=== PATIENT | female | born 1940 | race Caucasian/White ===

== ENCOUNTER 2016-12-14 21:35 | Inpatient (IN) | payer MEDICARE ==
--- NOTE | 2016-12-14 22:25 | Emergency Department Record ---
History of Present Illness - General Chief complaint: Hypogylcemia Stated complaint: LOW BLOOD SUGAR Time Seen by Provider: 12/14/16 22:20 Source: Patient, Family Mode of Arrival: EMS - History of Present Illness Initial comments: Family member witnessed the patient taking her insulin twice accidentally. Called EMS with BS low. D50 given en route with good results. Patient alert currently. No complaints. Onset/Timin -: Hour(s) Consistency: Constant, Getting worse - Related Data Home Medications Medication Instructions Recorded Confirmed Last Taken Atorvastatin Calcium [Atorvastatin 80 mg PO DAILY 12/14/16 12/14/16 Unknown Calcium] Hum Insulin NPH/Reg Insulin Hm 1 unit SC BID 12/14/16 12/14/16 Unknown [Novolin 70/30] Losartan/Hydrochlorothiazide 1 each PO DAILY 12/14/16 12/14/16 Unknown [Losartan-Hctz 100-25 mg Tab] Metoprolol Succinate [Metoprolol 150 mg PO DAILY 12/14/16 12/14/16 Unknown Succinate] Ranolazine [Ranexa] 500 mg PO BID 12/14/16 12/14/16 Unknown Allergies Allergy/AdvReac Type Severity Reaction Status Date / Time No Known Drug Allergies Allergy Verified 12/14/16 21:50 Travel Screening - Travel/Exposure Within Last 30 Days Have you traveled within the last 30 days?: No Review of Systems Reviewed: No additional complaints except as noted below Constitutional: Reports: As per HPI. Denies: Chills, Fever, Malaise, Night sweats, Weakness, Weight change Eyes: Reports: As per HPI. Denies: Eye discharge, Eye pain, Photophobia, Vision change ENT: Reports: As per HPI. Denies: Congestion, Dental pain, Ear pain, Epistaxis , Hearing loss, Throat pain Respiratory: Reports: As per HPI. Denies: Cough, Dyspnea, Hemoptysis, Stridor, Wheezes Cardiovascular: Reports: As per HPI. Denies: Arrhythmia, Chest pain, Dyspnea on exertion, Edema, Murmurs, Orthopnea, Palpitations, Paroxysmal nocturnal dyspnea, Rheumatic Fever, Syncope Endocrine: Reports: As per HPI. Denies: Fatigue, Heat or cold intolerance, Polydipsia, Polyuria Gastrointestinal: Reports: As per HPI. Denies: Abdominal pain, Constipation, Diarrhea, Hematemesis, Hematochezia, Melena, Nausea, Vomiting Genitourinary: Reports: As per HPI. Denies: Abnormal menses, Discharge, Dyspareunia, Dysuria, Frequency, Hematuria, Incontinence, Retention, Urgency Musculoskeletal: Reports: As per HPI. Denies: Arthralgia, Back pain, Gout, Joint swelling, Myalgia, Neck pain Skin: Reports: As per HPI. Denies: Bruising, Change in color, Change in hair/ nails, Lesions, Pruritus, Rash Neurological: Reports: As per HPI. Denies: Abnormal gait, Confusion, Headache, Numbness, Paresthesias, Seizure, Tingling, Tremors, Vertigo, Weakness Psychiatric: Reports: As per HPI. Denies: Anxiety, Auditory hallucinations, Depression, Homicidal thoughts, Suicidal thoughts, Visual hallucinations Hematological/Lymphatic: Reports: As per HPI. Denies: Anemia, Blood Clots, Easy bleeding, Easy bruising, Swollen glands Past Medical History - SOCIAL HISTORY Smoking Status: Never smoker Alcohol Use: None Drug Use: None - RESPIRATORY Hx Respiratory Disorders: No - CARDIOVASCULAR Hx Cardio Disorders: Yes Hx Hypertension: Yes - NEURO Hx Neuro Disorders: No - GI Hx GI Disorders: No - Hx Genitourinary Disorders: No - ENDOCRINE Hx Endocrine Disorders: Yes Hx Diabetes: Yes - MUSCULOSKELETAL Hx Musculoskeletal Disorders: No - PSYCH Hx Psych Problems: No - HEMATOLOGY/ONCOLOGY Hx Hematology/Oncology Disorders: Yes Hx Cancer: Yes (2013) Hx Chemotherapy: Yes (2013) Hx Radiation Therapy: Yes Family Medical History Any Significant Family History?: No Physical Exam - General General Appearance: Alert, Oriented x3, Cooperative, No acute distress - Head Head exam: Normal inspection - Eye Eye exam: Normal appearance, PERRL Pupils: Normal accommodation - ENT ENT exam: Normal exam, Mucous membranes moist, Normal external ear exam, Normal orophraynx, TM's normal bilaterally Ear exam: Normal external inspection. negative: External canal tenderness Nasal Exam: Normal inspection. negative: Discharge, Sinus tenderness Mouth exam: Normal external inspection, Tongue normal Teeth exam: Normal inspection. negative: Dental caries Throat exam: Normal inspection. negative: Tonsillar erythema, Tonsillar exudate - Neck Neck exam: Normal inspection, Full ROM. negative: Tenderness - Respiratory Respiratory exam: Normal lung sounds bilaterally. negative: Respiratory distress - Cardiovascular Cardiovascular Exam: Normal rhythm, Normal heart sounds, Bradycardia - GI/Abdominal GI/Abdominal exam: Soft, Normal bowel sounds. negative: Tenderness - Rectal Rectal exam: Deferred - exam: Deferred - Extremities Extremities exam: Normal inspection, Full ROM, Normal capillary refill. negative: Tenderness - Back Back exam: Reports: Normal inspection, Full ROM. Denies: Muscle spasm, Rash noted, Tenderness - Neurological Neurological exam: Alert, Normal gait, Oriented X3, Reflexes normal - Psychiatric Psychiatric exam: Normal affect, Normal mood - Skin Skin exam: Dry, Intact, Normal color, Warm Course Vital Signs 12/14/16 21:35 Temperature 97.6 F Pulse Rate [ 53 L [employer] ] Respiratory 24 Rate Blood Pressure 123/46 [Left Arm] Pulse Ox 97 - Reevaluation(s) Reevaluation #1: Discussed results of workup with family members who prefer she be admitted here at [facility] as they all live in town. Patient is sleeping comfortably. She sees Dr. Alejo. 12/15/16 00:42 Reevaluation #2: Upon further questioning the family states that she has been confused and not herself for at least 3 weeks. When in her PCP office recently there was no blood drawn. 12/15/16 01:01 Medical Decision Making - Management Options MDM Management: Additional Work-up Planned (e.g. ADM/Transfer/OP Study) (Admit for hyponatremia) - Data Complexity MDM Data: Labs Ordered and/or Reviewed (NA 118; WBC 15.8 w 81N and 2 bands), X- Ray Ordered and/or Reviewed (CXR 2 view: Neg for acute abnormality per ED physician.), EKG Ordered and/or Reviewed - Lab Data Result diagrams: 12/14/16 22:30 12/14/16 22:30 Lab Results 12/14/16 Range/Units 21:56 POC Glucose 94 (70-110) mg/dL - EKG Data -: EKG Interpreted by Wy EKG: No Acute Changes (No prior available) Disposition Disposition: Admit Clinical Impression: Hyponatremia, Lactic acidemia Leukocytosis Qualifiers: Leukocytosis type: bandemia Qualified Code(s): D72.825 - Bandemia Disposition: Still a Patient at [facility] Decision to Admit: Admit from ER Decision to Admit Date: 12/15/16 Decision to Admit Time: 00:50 Accepting Physician: Condition: (2) Stable Forms: Patient Portal Access Quality - Quality Measures Quality Measures: N/A - Blood Pressure Screening Blood Pressure Classification: Hypertensive Reading Systolic Measurement: 153 Diastolic Measurement: 69 Screening for High Blood Pressure: < Normal BP, F/U Not Required > [[id number]] Normal BP Follow-up Interventions: No follow-up required
[2016-12-14 22:45] LABS: HEMOGLOBIN 12.5 gm/dl (11.6-16.0); MEAN CELL VOLUME 83.5 fl (81-97); MEAN CORPUSCULAR HEMOGLOBIN 29.8 pg (27-33); MEAN CORPUSCULAR HGB CONC 35.7 g/dl (32-36); MEAN PLATELET VOLUME 9.9 fl (7.4-10.4); PLATELET COUNT 201 K/uL (130-400); RED BLOOD COUNT 4.19 M/uL (3.80-5.40); RED CELL DISTRIBUTION WIDTH 14.9 % (11.5-14.5); WHITE BLOOD COUNT W/O DIFF 15.8 K/uL (4.2-12.2)
[2016-12-14 23:00] LABS: LACTIC ACID 3.3 mmol/L (0.7-2.1)
[2016-12-14 23:14] LABS: CREATININE 1.1 mg/dL (0.52-1.04); TROPONIN I 0.033 ng/mL (0.00-0.034)
[2016-12-14 23:34] LABS: URINE APPEARANCE CLEAR; URINE BILIRUBIN NEGATIVE (NEGATIVE); URINE BLOOD NEGATIVE (NEGATIVE); URINE COLOR YELLOW; URINE GLUCOSE (UA) NEGATIVE (NEGATIVE); URINE KETONE NEGATIVE (NEGATIVE); URINE LEUKOCYTE ESTERASE NEGATIVE (NEGATIVE); URINE NITRITE NEGATIVE (NEGATIVE); URINE UROBILINOGEN 0.2 E.U./dL (0.20 - 1.00)
[2016-12-14 23:45] LABS: URINE MUCUS LIGHT; URINE RBC 0 - 2 (NONE SEEN); URINE WBC 0 - 2 (0-2/hpf)
[2016-12-15] MEDS ORDERED: AL HYDROX/MAG HYDROX 30ML UD PO PRN (01:37)
[2016-12-15] MEDS ORDERED: ACETAMINOPHEN 500 MG TABLET PO PRN (01:37)
--- NOTE | 2016-12-15 07:21 | History & Physical ---
History of Present Illness - Date of Service Date of Service for History & Physical: 12/15/16 - History of Present Illness Admitting Diagnosis: hyponatremia; hypoglycemia secondary to accidental double dosing; leukocytosis; elevated lactate; renal insufficiency History of Present Illness: 76 yo female admitted for hypoglycemia and hyopnatremia. PMHx of IDDM, high cholesterol, HTN, obesity, and h/o uterine cancer (s/p chemo and rxt). History obtained from patient. Patient is slow to respond however A&O to place, month and birthdate. Patient presented to our ED by EMS after family member witnessed patient take her evening Hum Insulin dose twice. Per patient, she became lethargic and her sister contacted EMS. Blood sugar low upon arrival which improved with D50 en route to the ER. Upon arrival temp 97.6, HR 53, RR 24, BP 123/46, pulse ox 97 on RA. WBC 15.8 (81 N, 2 bands), sodium 118, potassium 3.5, BUN 29, Cr. 1.1, glucose 92, lactic acid 3.3, troponin negative. UA: negative leuks, blood, nitrite. CXR: negative per myself (radiology read not available), EKG: NAP, no prior. Patient's insulin was held. NS lock. Admitted for further medical management. This morning, patient is lying in bed. No family available. Patient is slow to respond, however A&O x 3. She states she feels better than arrival. Feeling very fatigued. Denies CP, SOB, fever, chills, n/v, abdominal pain, dizziness, confusion, lightheadedness, pain w/ urination or blood in stool. She reports more weakness over the past few days. Per ED note, family reported patient to be weaker for the past 3 weeks. She was seen by her PCP last week, however no labs were obtained. Patient denies any changes to her medications, recent travel, or illness. Denies h/o SD or CVA. Patient typically takes Humulin 70/30 in am and pm, however was told she took two doses yesterday evening. Glucose reportedly 42 around 7 am this morning. This improved to 74 following 240 cc's of apple juice, two arlen crackers and PB. Patient states she completes ADL's independently typically. She uses a walker if necessary. PCP: Jose G Garcia M.D. Travel Screening - Travel/Exposure Within Last 30 Days Have you traveled within the last 30 days?: No - Travel/Exposure Within Last Year Have you traveled outside the [place] in the last year?: No - Additonal Travel Details Have you been exposed to anyone with a communicable illness?: No - Travel Symptoms Symptom Screening: None Review of Systems Constitutional: Reports: As per HPI. Denies: Chills, Fever, Malaise, Night sweats, Weakness, Weight change Eyes: Reports: As per HPI. Denies: Eye discharge, Eye pain, Photophobia, Vision change ENT: Reports: As per HPI. Denies: Congestion, Dental pain, Ear pain, Epistaxis , Hearing loss, Throat pain Respiratory: Reports: As per HPI. Denies: Cough, Dyspnea, Hemoptysis, Stridor, Wheezes Cardiovascular: Reports: As per HPI. Denies: Arrhythmia, Chest pain, Dyspnea on exertion, Edema, Murmurs, Orthopnea, Palpitations, Paroxysmal nocturnal dyspnea, Rheumatic Fever, Syncope Endocrine: Reports: As per HPI. Denies: Fatigue, Heat or cold intolerance, Polydipsia, Polyuria Gastrointestinal: Reports: As per HPI. Denies: Abdominal pain, Constipation, Diarrhea, Hematemesis, Hematochezia, Melena, Nausea, Vomiting Genitourinary: Reports: As per HPI. Denies: Abnormal menses, Discharge, Dyspareunia, Dysuria, Frequency, Hematuria, Incontinence, Retention, Urgency Musculoskeletal: Reports: As per HPI. Denies: Arthralgia, Back pain, Gout, Joint swelling, Myalgia, Neck pain Skin: Reports: As per HPI. Denies: Bruising, Change in color, Change in hair/ nails, Lesions, Pruritus, Rash Neurological: Reports: As per HPI. Denies: Abnormal gait, Confusion, Headache, Numbness, Paresthesias, Seizure, Tingling, Tremors, Vertigo, Weakness Psychiatric: Reports: As per HPI. Denies: Anxiety, Auditory hallucinations, Depression, Homicidal thoughts, Suicidal thoughts, Visual hallucinations Hematological/Lymphatic: Reports: As per HPI. Denies: Anemia, Blood Clots, Easy bleeding, Easy bruising, Swollen glands Past Medical History - SOCIAL HISTORY Smoking Status: Never smoker Alcohol Use: None Drug Use: None - RESPIRATORY Hx Respiratory Disorders: No - CARDIOVASCULAR Hx Cardio Disorders: Yes Hx Hypertension: Yes - NEURO Hx Neuro Disorders: No - GI Hx GI Disorders: No - Hx Genitourinary Disorders: No - ENDOCRINE Hx Endocrine Disorders: Yes Hx Diabetes: Yes - MUSCULOSKELETAL Hx Musculoskeletal Disorders: No - PSYCH Hx Psych Problems: No - HEMATOLOGY/ONCOLOGY Hx Hematology/Oncology Disorders: Yes Hx Cancer: Yes (2013) Hx Chemotherapy: Yes (2013) Hx Radiation Therapy: Yes Family Medical History Any Significant Family History?: No H&P Meds/Allergies - Allergies Allergies: Allergies Allergy/AdvReac Type Severity Reaction Status Date / Time No Known Drug Allergies Allergy Verified 12/14/16 21:50 - Home Medications Home Medications Medication Instructions Recorded Confirmed Last Taken Atorvastatin Calcium [Atorvastatin 80 mg PO DAILY 12/14/16 12/14/16 Unknown Calcium] Hum Insulin NPH/Reg Insulin Hm 1 unit SC BID 12/14/16 12/14/16 Unknown [Novolin 70/30] Losartan/Hydrochlorothiazide 1 each PO DAILY 12/14/16 12/14/16 Unknown [Losartan-Hctz 100-25 mg Tab] Metoprolol Succinate [Metoprolol 150 mg PO DAILY 12/14/16 12/14/16 Unknown Succinate] Ranolazine [Ranexa] 500 mg PO BID 12/14/16 12/14/16 Unknown - Active Medications Active Medications: Current Medications Acetaminophen (Tylenol 500mg Tab) 500 mg PO Q6H PRN PRN Reason: PAIN/TEMP Al Hydroxide/Mg Hydroxide (Maalox) 30 ml PO Q4H PRN PRN Reason: GI UPSET Atorvastatin Calcium (Lipitor) 80 mg PO DAILY [facility] Insulin Isophane/Insulin Regular (Humulin 70/30 Kwikpen) 1 unit SQ BID [facility] Metoprolol Succinate (Toprol Xl) 150 mg PO DAILY [facility] Non-Formulary Medication (Ranolazine [Ranexa]) 500 mg PO BID [facility] Physical Exam - Vital Signs Vital Signs: Vital Signs - Last 24 Hrs Temp Pulse Resp BP BP Pulse Ox 12/15/16 03:37 97.7 F 57 L 16 149/74 100 12/15/16 01:37 97.8 F 53 L 16 126/75 99 - General General Appearance: Alert, Oriented x3, Cooperative, No acute distress - Head Head exam: Normal inspection - Eye Eye exam: Normal appearance, PERRL Pupils: Normal accommodation - ENT ENT exam: Normal exam, Mucous membranes moist, Normal external ear exam, Normal orophraynx, TM's normal bilaterally Ear exam: Normal external inspection. negative: External canal tenderness Nasal Exam: Normal inspection. negative: Discharge, Sinus tenderness Mouth exam: Normal external inspection, Tongue normal Teeth exam: Normal inspection. negative: Dental caries Throat exam: Normal inspection. negative: Tonsillar erythema, Tonsillar exudate - Neck Neck exam: Normal inspection, Full ROM. negative: Tenderness - Respiratory Respiratory exam: Normal lung sounds bilaterally. negative: Respiratory distress - Cardiovascular Cardiovascular Exam: Normal rhythm, Normal heart sounds, Bradycardia - GI/Abdominal GI/Abdominal exam: Soft, Normal bowel sounds. negative: Tenderness - Rectal Rectal exam: Deferred - exam: Deferred - Extremities Extremities exam: Normal inspection, Full ROM, Normal capillary refill. negative: Tenderness - Back Back exam: Reports: Normal inspection, Full ROM. Denies: Muscle spasm, Rash noted, Tenderness - Neurological Neurological exam: Alert, Normal gait, Oriented X3 - Psychiatric Psychiatric exam: Normal affect, Normal mood - Skin Skin exam: Dry, Intact, Normal color, Warm Results - Labs Result Diagrams: 12/15/16 09:43 12/15/16 09:43 VTE H&P Assessment - Risk for VTE Risk for VTE: Yes Risk Level: Moderate Risk Assessment Date: 12/15/16 Risk Assessment Time: 10:00 VTE Orders Placed or Will Be Placed: Yes Plan - Inpatient Certification Inpatient Certification: Admit to inpatient care: Based on my medical assessment, after consideration of patient's risk factors (age, co-morbidities and patient presenting symptoms and acuity), I expect that this patient will remain in the hospital greater than or equal to two midnights and that the services needed warrant inpatient care because: Patient Risk Factors: [hyponatremia, hypoglycemia, confusion, weakness] Estimated length of stay: [2-3 nights] The patient may reasonably be expected to be discharged or transferred to a hospital within 96 hours after admission to [facility]. Services needed: [labs, VS monitoring, glucose monitoring, IVFs] Post hospital care (if known): [home, self care, home w/ family] I certify that my determination is in accordance with my understanding of Medicare requirements for reasonable and necessary inpatient services. 12/15/16 12:34 - Detailed Diagnosis and Plan (1) Hyponatremia Current Visit: Yes Status: Acute Base Code: E87.1 - HYPO-OSMOLALITY AND HYPONATREMIA Comment: 12/15/16: hypertonic vs. hypotonic vs. isotonic? - moderate to severe hyponatremia (110-120) - plasma & urine osmolality along with urine sodium concentration ordered - IV NS 50 mls/hr initiated - encourage sodium intake - will recheck at 1600 (2) Hypoglycemia Current Visit: Yes Status: Acute Base Code: E16.2 - HYPOGLYCEMIA, UNSPECIFIED Comment: 12/15/16: Plan as stated below (3) IDDM (insulin dependent diabetes mellitus) Current Visit: Yes Status: Acute Base Code: E11.9 - TYPE 2 DIABETES MELLITUS WITHOUT COMPLICATIONS; Z79.4 - [employer] PREPARATION (CURRENT) USE OF INSULIN Comment: 12/15/16: IDDM patient took two doses of Humulin 70/30 prior to arrival , contributing to hypoglycemia. Per ED physician, she received 1 amp of D50 while in the ambulance. - monitor glucose levels achqs & prn - monitor for change in mental status - noting hypoglycemia, will hold Humulin (action duration 10-16 hours) - 1/2-2 amp's of D50 prn for hypoglycema - I anticipate we can re start patient's diabetic therapy regimen once sugars improve (4) DVT prophylaxis Current Visit: Yes Status: Acute Base Code: [id number] - Comment: 12/15/16: age, decreased mobility. scds WIB (5) Full code status Current Visit: Yes Status: Acute Base Code: Z78.9 - OTHER SPECIFIED HEALTH STATUS Comment: 12/15/16: pt is full code (6) Confusion Current Visit: Yes Status: Acute Base Code: R41.0 - DISORIENTATION, UNSPECIFIED Comment: 12/15/16: hypoglycemia vs. hyponatremia vs. other? - no neurologic deficit findings - hold insulin therapy - IV NS 50 mls/hr to assist in sodium replacement - hyponatremia work up: plasma, urine sodium concentration/ osmolality - patient high fall risk, encouraged assistance with ambulation - patient may benefit from home PT/OT services once medically stable
[2016-12-15] MEDS: METOPROLOL SUCC 50 MG TABLET PO SCH ×2 (08:13→10:06)
[2016-12-15] MEDS ORDERED: 0.9 % SODIUM CHLORIDE 1000ML 1,000 ML IV PRN (08:54)
[2016-12-15 09:57] LABS: HEMATOCRIT 35.4 % (35.0-47.0); HEMOGLOBIN 12.7 gm/dl (11.6-16.0); MEAN CELL VOLUME 83.9 fl (81-97); MEAN CORPUSCULAR HEMOGLOBIN 30.1 pg (27-33); MEAN CORPUSCULAR HGB CONC 35.9 g/dl (32-36); MEAN PLATELET VOLUME 9.7 fl (7.4-10.4); PLATELET COUNT 209 K/uL (130-400); RED BLOOD COUNT 4.22 M/uL (3.80-5.40); RED CELL DISTRIBUTION WIDTH 14.7 % (11.5-14.5); WHITE BLOOD COUNT W/O DIFF 17.9 K/uL (4.2-12.2)
[2016-12-15] MEDS ORDERED: RANOLAZINE 500 MG PO SCH (10:00)
[2016-12-15] MEDS ORDERED: ATORVASTATIN 20 MG TABLET PO SCH (10:00)
[2016-12-15] MEDS ORDERED: HUMULIN 70/30 KWIKPEN 100 UNIT/ML SQ SCH (10:00)
[2016-12-15 10:09] LABS: ALB/GLOB RATIO 1.5 (1.1-1.8); ALKALINE PHOSPHATASE 53 U/L (38-126); ALT/SGPT 64 U/L (9-52); ANION GAP 12.7 (7-16); AST/SGOT 54 U/L (14-36); BILIRUBIN,TOTAL 0.96 mg/dL (0.2-1.3); BLOOD UREA NITROGEN 21 mg/dL (7-17); CARBON DIOXIDE 22.3 mmol/L (22-30); CREATININE 0.9 mg/dL (0.52-1.04); EST GLOMERULAR FILTRATION RATE > 60 ml/min; GLUCOSE,RANDOM 178 mg/dL (70-110); TOTAL PROTEIN 6.6 gm/dL (6.3-8.2)
[2016-12-15 10:16] LABS: PLATELET ESTIMATE NORMAL (NORMAL)
[2016-12-15 18:09] LABS: OSMOLALITY,SERUM 243 mOsm/kg (280-295)
--- NOTE | 2016-12-15 19:07 | Discharge Summary ---
Providers Discharge Summary Date: 12/15/16 Date of admission: 12/15/16 01:08 Expected Date of Discharge: 12/15/16 Attending physician: SHABBIR HER Primary care physician: MYAH PERSAUD M.D. Physical Exam - Vital Signs Vital Signs: Vital Signs - Last 24 Hrs Temp Pulse Pulse Resp BP BP Pulse Ox 12/15/16 15:00 98.4 F 63 18 173/73 99 12/15/16 11:00 99 F 65 65 18 177/81 98 12/15/16 09:00 54 L 57 L 18 12/15/16 07:37 54 L 18 184/79 100 12/15/16 03:37 97.7 F 57 L 16 149/74 100 12/15/16 01:37 97.8 F 53 L 16 126/75 99 - General General Appearance: Alert (no physical exam performed prior to acute care transfer as I was not in house. Patient A&Ox3 per nurse) - Extremities Extremities exam: negative: Tenderness Hospitalization - Hospitalization Admission Diagnosis: hyponatremia; hypoglycemia secondary to accidental double dosing; leukocytosis; elevated lactate; renal insufficiency - Problem List/Discharge Diagnosis (1) Hyponatremia Current Visit: Yes Status: Acute Base Code: E87.1 - HYPO-OSMOLALITY AND HYPONATREMIA Comment: 12/15/16: hypertonic vs. hypotonic vs. isotonic? - most recent serum sodium of 117, serum osmolality 243 - urine osmolality pending - non contrast head CT ordered - Will go forth with acute care transfer to [facility] for hyponatremia (2) Hypoglycemia Current Visit: Yes Status: Acute Base Code: E16.2 - HYPOGLYCEMIA, UNSPECIFIED Comment: 12/15/16: Plan as stated below (3) IDDM (insulin dependent diabetes mellitus) Current Visit: Yes Status: Acute Base Code: E11.9 - TYPE 2 DIABETES MELLITUS WITHOUT COMPLICATIONS; Z79.4 - USP (CURRENT) USE OF INSULIN Comment: 12/15/16: IDDM patient took two doses of Humulin 70/30 prior to arrival , contributing to hypoglycemia. Per ED physician, she received 1 amp of D50 while in the ambulance. - most recent glucose 178 - noting patient's critically low serum sodium level and continued confusion, acute care transfer to [facility] has been set up. - non contrast head CT will be obtained prior to transfer as requested by [facility]'s ICU staff. (4) Full code status Current Visit: Yes Status: Acute Base Code: Z78.9 - OTHER SPECIFIED HEALTH STATUS Comment: 12/15/16: pt remained full code (5) Confusion Current Visit: Yes Status: Acute Base Code: R41.0 - DISORIENTATION, UNSPECIFIED Comment: 12/15/16: hypoglycemia vs. hyponatremia vs. combination vs other? - No family available during exam, however, per ED documentation, family reported patient more confused x 3 weeks. Patient A&Ox3 (placed, birthdate and month). Patient confused throughout the day. Pulled her IV and unable to obtain access. - serum Na: 118->112->117 - serum osmolality 243 - no urine osmolality available - I've set up acute care transfer to [facility] and patient has been accepted. - STAT head CT w/o contrast will be completed prior to transfer as requested. - Hospitalization Course Disposition: Acute Care Hospital Transfer Hospital Course: 76 yo female admitted for hypoglycemia and hyopnatremia. PMHx of IDDM, high cholesterol, HTN, obesity, and h/o uterine cancer (s/p chemo and rxt). History obtained from patient. Patient is slow to respond however A&O to place, month and birthdate. Patient presented to our ED by EMS after family member witnessed patient take her evening Hum Insulin dose twice. Per patient, she became lethargic and her sister contacted EMS. Blood sugar low upon arrival which improved with D50 en route to the ER. Upon arrival temp 97.6, HR 53, RR 24, BP 123/46, pulse ox 97 on RA. WBC 15.8 (81 N, 2 bands), sodium 118, potassium 3.5, BUN 29, Cr. 1.1, glucose 92, lactic acid 3.3, troponin negative. UA: negative leuks, blood, nitrite. CXR: negative per myself (radiology read not available), EKG: NAP, no prior. Patient's insulin was held. NS lock. Admitted for further medical management. This morning, patient is lying in bed. No family available. Patient is slow to respond, however A&O x 3. She states she feels better than arrival. Feeling very fatigued. Denies CP, SOB, fever, chills, n/v, abdominal pain, dizziness, confusion, lightheadedness, pain w/ urination or blood in stool. She reports more weakness over the past few days. Per ED note, family reported patient to be weaker for the past 3 weeks. She was seen by her PCP last week, however no labs were obtained. Patient denies any changes to her medications, recent travel, or illness. Denies h/o LA or CVA. Patient typically takes Humulin 70/30 in am and pm, however was told she took two doses yesterday evening. Glucose reportedly 42 around 7 am this morning. This improved to 74 following 240 cc's of apple juice, two arlen crackers and PB. Patient states she completes ADL's independently typically. She uses a walker if necessary. PCP: Jose G Garcia M.D. 12/15/16 6:33 pm: Critical lab value reported by nursing staff. Serum osmolality of 243. Patient's serum Na 118->112->117 (most recent at 16:50). Nursing staff reports patient's mentation to be stable throughout the day. Janeen pulled out her IV this afternoon. staff has not been able to re place. Del one call contacted re acute care transfer. Del's director compensation ICU physician accepted patient. Head CT requested prior to transfer and has been ordered. Nursing staff informed and asked to contact Radiology to obtain STAT. Procedures: Imaging and X-Rays 12/15/16 19:05 HEAD WO CONTRAST [CT] Stat Abnormal Labs: Abnormal Lab Results 12/15/16 12/15/16 12/15/16 Range/Units 07:15 09:43 09:43 WBC 17.9 H (4.2-12.2) K/uL RDW 14.7 H (11.5-14.5) % Lymphocytes 15.0 L (16-45) % Sodium 112 L* (136-145) mmol/L Chloride 77 L (98-107) mmol/L BUN 21 H (7-17) mg/dL POC Glucose 42 L* (70-110) mg/dL Random Glucose 178 H (70-110) mg/dL Calcium 7.9 L (8.5-10.1) mg/dL AST 54 H (14-36) U/L ALT 64 H (9-52) U/L 12/15/16 12/15/16 Range/Units 16:45 16:50 WBC (4.2-12.2) K/uL RDW (11.5-14.5) % Lymphocytes (16-45) % Sodium 117 L* (136-145) mmol/L Chloride (98-107) mmol/L BUN (7-17) mg/dL POC Glucose 115 H (70-110) mg/dL Random Glucose (70-110) mg/dL Calcium (8.5-10.1) mg/dL AST (14-36) U/L ALT (9-52) U/L Condition at Discharge: (2) Stable Discharge Medications - Discharge Medications Home Medications: Ambulatory Orders Atorvastatin Calcium 80 mg PO DAILY 12/14/16 [Last Taken Unknown] Losartan/Hydrochlorothiazide [Losartan-Hctz 100-25 mg Tab] 1 each PO DAILY 12/14 [Last Taken Unknown] Metoprolol Succinate 150 mg PO DAILY 12/14/16 [Last Taken Unknown] Ranolazine [Ranexa] 500 mg PO BID 12/14/16 [Last Taken Unknown] Discharge Plan - Discharge Instructions Activity at Discharge: Other (per [facility]) Diet at Discharge: Diabetic Diet
--- NOTE | 2016-12-16 07:32 | RADIOLOGY REPORT ---
EXAM: CHEST, TWO VIEWS HISTORY: HYPOGLYCEMIA. TECHNIQUE: Two views of the chest were obtained. Comparison: None. FINDINGS: The lungs are clear. The cardiac silhouette is at least mildly enlarged. Elevated right hemidiaphragm. The osseous structures are unremarkable for age. IMPRESSION: 1. NO ACUTE INTRATHORACIC PROCESS. 2. MILD CARDIOMEGALY. 3. ELEVATED RIGHT HEMIDIAPHRAGM. JOB NUMBER: [id number] MTDD
--- NOTE | 2016-12-16 07:35 | CT SCAN REPORT ---
EXAM: CT OF THE BRAIN HISTORY: ALTERED MENTAL STATUS. TECHNIQUE: Noncontrast head CT was obtained. Comparison: None. FINDINGS: There is prominence of the ventricles and subarachnoid spaces compatible with atrophy. no mass or mass effect. No intra or extraaxial hemorrhage. No CT evidence for large acute territorial infarct. Areas of hypodensity are seen in the white matter likely the result of chronic small vessel ischemic change. The visualized sinuses are clear. IMPRESSION: 1. ATROPHY AND CHRONIC SMALL VESSEL ISCHEMIC CHANGE. 2. NO MASS, HEMORRHAGE, OR ACUTE INTRACRANIAL PROCESS IDENTIFIED. JOB NUMBER: [id number] MTDD
== END 2016-12-15 22:45 | disposition short-term general hospital (02) | DRG 641 ==
LOC: ER 21:35 → MEDSURG 12-15 01:08
PROVIDERS: ADMIT Family Medicine; ATTEND Family Medicine
DX: E87.1 Hypo-osmolality and hyponatremia (principal); E11.649 Type 2 diabetes mellitus with hypoglycemia without coma; Z79.4 Long term (current) use of insulin; Z78.9 Other specified health status; E78.00 Pure hypercholesterolemia, unspecified; I10 Essential (primary) hypertension; Z85.42 Personal history of malignant neoplasm of other parts of uterus; R41.0 Disorientation, unspecified
CPT/HCPCS: 36416; 70450; 71020; 80048; 80053; 81001; 82948; 83605; 83930; 83935; 84295; 84484; 85027; 93005; 93010; 94760; 99223; 99285

== ENCOUNTER 2018-06-26 11:56 | Inpatient (IN) | payer MEDICARE ==
[2018-06-26] MEDS ORDERED: IPRATROPIUM/ALBUTEROL (0.5MG/3MG) NEB INH ONE (12:09)
--- NOTE | 2018-06-26 12:20 | Emergency Department Record ---
History of Present Illness - General Chief Complaint: Shortness of breath Stated Complaint: SHANICE Time Seen by Provider: 06/26/18 12:09 Source: Patient, Family Mode of Arrival: Ambulatory Limitations: No limitations - History of Present Illness Initial Comments: The patient is here due to a 10 day hx of cough and congestion with SOB while coughing and walking. She denies any CP, sweating or nausea but is having NUGENT. The patient did go to a 7 days ago and was treated with a Zpak, inhaller and cough medicine but is no better now. She did also see her PCP this AM and was sent to the ER due to the wheezing. MD Complaint: Cough, Shortness of breath Onset/Timin -: Days(s) Severity scale (1-10): 1 Quality: Other Consistency: Intermittent Improves With: Nothing Worsens With: Exertion, Movement Known History Of: Diabetes Treatments Prior to Arrival: Bronchodilator Treatment Prior to Arrival Comment:: cough medicne and inhalier. - Related Data Home Oxygen Therapy: No Home Medications Medication Instructions Recorded Confirmed Last Taken Amlodipine Besylate 1 tab PO DAILY 06/26/18 06/26/18 06/26/18 Aspirin [Aspir-Low] 81 mg PO DAILY 06/26/18 06/26/18 06/26/18 Clopidogrel Bisulfate [Clopidogrel] 1 tab PO DAILY 06/26/18 06/26/18 06/26/18 Insulin Aspart [Novolog] 1 unit SQ ASDIR 06/26/18 06/26/18 Unknown Insulin Detemir [Levemir] 1 unit SQ ASDIR 06/26/18 06/26/18 Unknown Isosorbide Mononitrate [Imdur] 1 tab PO DAILY 06/26/18 06/26/18 06/26/18 Losartan/Hydrochlorothiazide 1 tab PO DAILY 06/26/18 06/26/18 06/26/18 [Losartan-Hctz 100-25 mg Tab] Metoprolol Tartrate 1 tab PO DAILY 06/26/18 06/26/18 06/26/18 Vitamin B Complex 1 each PO DAILY 06/26/18 06/26/18 06/26/18 Allergies Allergy/AdvReac Type Severity Reaction Status Date / Time No Known Drug Allergies Allergy Verified 12/14/16 21:50 Travel Screening - Travel/Exposure Within Last 30 Days Have you traveled within the last 30 days?: No - Travel/Exposure Within Last Year Have you traveled outside the [place] in the last year?: No - Additonal Travel Details Have you been exposed to anyone with a communicable illness?: No Review of Systems Constitutional: Denies: Chills, Fever Eyes: Denies: Eye discharge ENT: Reports: Congestion Respiratory: Reports: Cough, Dyspnea. Denies: Hemoptysis Cardiovascular: Reports: Dyspnea on exertion. Denies: Chest pain Endocrine: Denies: Fatigue Gastrointestinal: Denies: Nausea Genitourinary: Denies: Dysuria Musculoskeletal: Denies: Arthralgia Skin: Denies: Bruising Past Medical History - SOCIAL HISTORY Smoking Status: Never smoker Alcohol Use: None Drug Use: None - RESPIRATORY Hx Respiratory Disorders: Yes Hx Asthma: Yes Hx Bronchitis: Yes - CARDIOVASCULAR Hx Cardio Disorders: Yes Hx Hypertension: Yes - NEURO Hx Neuro Disorders: No - GI Hx GI Disorders: No - Hx Genitourinary Disorders: No - ENDOCRINE Hx Endocrine Disorders: Yes Hx Diabetes: Yes - MUSCULOSKELETAL Hx Musculoskeletal Disorders: No - PSYCH Hx Psych Problems: Yes Hx Anxiety: Yes Hx Depression: Yes - HEMATOLOGY/ONCOLOGY Hx Hematology/Oncology Disorders: Yes Hx Cancer: Yes (2013) Hx Chemotherapy: Yes (2013) Hx Radiation Therapy: Yes Family Medical History Any Significant Family History?: Yes Hx Diabetes: Mother, Children Hx Heart Disease: Father, Mother, Brother/Sister Hx HTN: Father, Mother, Brother/Sister Hx Stroke: Grandparents Physical Exam - General General Appearance: Alert, Oriented x3, Cooperative, No acute distress - Head Head exam: Atraumatic, Normocephalic, Normal inspection - Eye Eye exam: Normal appearance, PERRL - ENT Throat exam: Normal inspection. negative: Tonsillar erythema, Tonsillar exudate - Neck Neck exam: Normal inspection, Full ROM. negative: Tenderness - Respiratory Respiratory exam: Wheezes (There is bilateral wheezing and rhonchi with good aeration.). negative: Normal lung sounds bilaterally, Respiratory distress - Cardiovascular Cardiovascular Exam: Regular rate, Normal rhythm, Normal heart sounds - GI/Abdominal GI/Abdominal exam: Soft, Normal bowel sounds. negative: Tenderness - Extremities Extremities exam: Normal inspection, Full ROM, Normal capillary refill. negative: Calf tenderness, Pedal edema, Tenderness - Back Back exam: Reports: Normal inspection - Neurological Neurological exam: Alert, Normal gait. negative: Abnormal gait, Motor sensory deficit Course Vital Signs 06/26/18 12:02 Temperature 97.7 F Pulse Rate 88 Respiratory 20 Rate Blood Pressure 124/91 Pulse Ox 97 - Reevaluation(s) Reevaluation #1: The patient is resting comfortably at this time but is still audibly wheezing. She denies any CP but is still coughing significantly. On exam she is still wheezing in all lung de [place]. I did discuss the need for admission and she does agree. I also did discuss the case with Dr. Chavarria and he does accept the admission. 06/26/18 13:42 Medical Decision Making - Data Complexity MDM Data: Labs Ordered and/or Reviewed, X-Ray Ordered and/or Reviewed, EKG Ordered and/or Reviewed - Lab Data Result diagrams: 06/26/18 12:40 06/26/18 12:40 - EKG Data -: EKG Interpreted by Me EKG: No Acute Changes, Normal EKG - Radiology Data Radiology results: Report reviewed (CXR: neg for any acute changes.) Disposition Disposition: Admit Clinical Impression: COPD (chronic obstructive pulmonary disease) Qualifiers: COPD type: unspecified COPD Qualified Code(s): J44.9 - Chronic obstructive pulmonary disease, unspecified Disposition: Still a Patient at [facility] Decision to Admit: Admit from ER Decision to Admit Date: 06/26/18 Decision to Admit Time: 13:44 Accepting Physician: Aura Time Discussed w/Accepting Physician: 13:44 Forms: Patient Portal Access Time of Disposition: 13:44 Quality - Quality Measures Quality Measures: N/A - Blood Pressure Screening Does Patient Have Any of the Following: Active Dx of HTN Blood Pressure Classification: Hypertensive Reading Systolic Measurement: 124 Diastolic Measurement: 91 Screening for High Blood Pressure: Patient Exclusion, Hx of HTN [G9744]
[2018-06-26 12:46] LABS: BASO % 0.2 % (0-6); EOS % 2.1 % (0-6); GRAN % 65.4 % (47-80); HEMOGLOBIN 10.5 gm/dl (11.6-16.0); LYMPH % 22.6 % (16-45); MEAN CELL VOLUME 89.9 fl (81-97); MEAN CORPUSCULAR HEMOGLOBIN 28.6 pg (27-33); MEAN CORPUSCULAR HGB CONC 31.8 g/dl (32-36); MEAN PLATELET VOLUME 10.5 fl (7.4-10.4); MONO % 9.7 % (0-9); PLATELET COUNT 184 K/uL (130-400); RED BLOOD COUNT 3.67 M/uL (3.80-5.40); RED CELL DISTRIBUTION WIDTH 15.4 % (11.5-14.5); WHITE BLOOD COUNT W/O DIFF 5.9 K/uL (4.2-12.2)
[2018-06-26 12:57] LABS: BILIRUBIN,TOTAL 0.4 mg/dL (0.2-1.0)
[2018-06-26 12:58] LABS: TOTAL PROTEIN 6.7 g/dL (6.6-8.7)
[2018-06-26 13:03] LABS: ALB/GLOB RATIO 1.2 (1.1-1.8); ALBUMIN 3.7 g/dL (4.0-5.0)
[2018-06-26] MEDS ORDERED: ALBUTEROL SULFATE (0.083%) 2.5 MG/3 ML NEB INH ONE (13:35)
[2018-06-26] MEDS ORDERED: AMPICILLIN SODIUM/SULBACTAM NA 3 G in 0.9 % SODIUM CHLORIDE 100ML 100 ML IVPB ONE (13:37)
[2018-06-26] MEDS ORDERED: HUMULIN R 100 UNIT/ML VIAL IV ONE (13:38)
[2018-06-26] MEDS ORDERED: METHYLPREDNISOLONE PF 125MG/VIAL IVP ONE (13:38)
[2018-06-26] MEDS ORDERED: AMPICILLIN SODIUM/SULBACTAM NA 1.5 G in 0.9 % SODIUM CHLORIDE 100ML 100 ML IVPB SCH (15:11)
[2018-06-26] MEDS: IPRATROPIUM/ALBUTEROL (0.5MG/3MG) NEB INH SCH ×3 (15:41→21:51)
[2018-06-26] MEDS ORDERED: PNEUM 13-VAL/PF 0.5 ML IM ONE (16:15)
[2018-06-26] MEDS ORDERED: ALBUTEROL SULFATE (0.083%) 2.5 MG/3 ML NEB INH PRN (17:35)
[2018-06-26] MEDS: NOVOLOG FLEXPEN (INSULIN ASPART) 100 UNITS/ML SQ SCH ×2 (17:45→17:46)
[2018-06-26] MEDS: ENOXAPARIN 30 MG/0.3 ML SYR SQ SCH (18:10)
[2018-06-26 18:19] LABS: INFLUENZA A NEGATIVE (NEGATIVE)
[2018-06-26 18:20] LABS: INFLUENZA B NEGATIVE (NEGATIVE)
[2018-06-26] MEDS: LEVEMIR FLEXTOUCH 100 UNIT/ML INSULIN PEN SQ SCH ×2 (20:11→21:07)
[2018-06-26] MEDS ORDERED: NOVOLOG FLEXPEN (INSULIN ASPART) 100 UNITS/ML SQ ONE (20:18)
[2018-06-26] MEDS: AMPICILLIN SODIUM/SULBACTAM NA 3 G in 0.9 % SODIUM CHLORIDE 100ML 100 ML IVPB SCH (22:33)
[2018-06-26] MEDS: ATORVASTATIN 20 MG TABLET PO SCH (22:34)
[2018-06-26] MEDS: METHYLPREDNISOLONE PF 125MG/VIAL IVP SCH (22:34)
[2018-06-26] MEDS: RANOLAZINE 500 MG PO SCH (22:51)
[2018-06-27] MEDS: AMPICILLIN SODIUM/SULBACTAM NA 3 G in 0.9 % SODIUM CHLORIDE 100ML 100 ML IVPB SCH ×3 (05:57→22:19)
[2018-06-27] MEDS: IPRATROPIUM/ALBUTEROL (0.5MG/3MG) NEB INH SCH ×5 (05:58→21:56)
[2018-06-27] MEDS: METHYLPREDNISOLONE PF 125MG/VIAL IVP SCH (05:59)
[2018-06-27 06:15] LABS: HEMATOCRIT 33.7 % (35.0-47.0); HEMOGLOBIN 11.1 gm/dl (11.6-16.0); MEAN CELL VOLUME 88.5 fl (81-97); MEAN CORPUSCULAR HEMOGLOBIN 29.1 pg (27-33); MEAN CORPUSCULAR HGB CONC 32.9 g/dl (32-36); MEAN PLATELET VOLUME 10.3 fl (7.4-10.4); PLATELET COUNT 179 K/uL (130-400); RED BLOOD COUNT 3.81 M/uL (3.80-5.40); RED CELL DISTRIBUTION WIDTH 15.1 % (11.5-14.5); WHITE BLOOD COUNT W/O DIFF 7.5 K/uL (4.2-12.2)
[2018-06-27 06:38] LABS: ALB/GLOB RATIO 1.2 (1.1-1.8); ALBUMIN 3.9 g/dL (4.0-5.0); ALKALINE PHOSPHATASE 64 U/L (45-87); ALT/SGPT 42 U/L (<33); AST/SGOT 24 U/L (10.0-35.0); BLOOD UREA NITROGEN 20 mg/dL (8-23); CREATININE 0.8 mg/dL (0.5-0.9); EST GLOMERULAR FILTRATION RATE > 60 mL/min; GLUCOSE,RANDOM 320 mg/dL (74-109); TOTAL PROTEIN 7.2 g/dL (6.6-8.7)
[2018-06-27] MEDS: GUAIFENESIN/D-METH. 10 ML UDC PO PRN ×3 (08:10→22:15)
[2018-06-27] MEDS: LOSARTAN POTASSIUM 25 MG TABLET PO SCH ×2 (08:10→10:05)
[2018-06-27] MEDS: AMLODIPINE BESYLATE 5MG TAB PO SCH ×2 (08:11→10:05)
[2018-06-27] MEDS: ISOSORBIDE MONONITRATE 60 MG TAB.ER.24H PO SCH ×2 (08:11→10:05)
[2018-06-27] MEDS: METOPROLOL SUCC 50 MG TABLET PO SCH ×2 (08:12→10:06)
[2018-06-27] MEDS: NOVOLOG FLEXPEN (INSULIN ASPART) 100 UNITS/ML SQ SCH ×6 (08:15→17:40)
[2018-06-27] MEDS: ASPIRIN 81 MG TABEC PO SCH (09:25)
[2018-06-27] MEDS: CLOPIDOGREL 75MG TABLET PO SCH (09:25)
[2018-06-27] MEDS ORDERED: METOPROLOL TARTRATE PO SCH (10:00)
[2018-06-27] MEDS ORDERED: LOSARTAN PO SCH (10:00)
[2018-06-27] MEDS ORDERED: HYDROCHLOROTHIAZIDE PO SCH (10:00)
[2018-06-27] MEDS: RANOLAZINE 500 MG PO SCH ×3 (10:05→22:18)
[2018-06-27] MEDS ORDERED: PNEUM 13-VAL/PF 0.5 ML IM ONE (12:00)
[2018-06-27] MEDS ORDERED: PREDNISONE 20 MG TAB PO ONE (13:23)
[2018-06-27] MEDS: ENOXAPARIN 30 MG/0.3 ML SYR SQ SCH (18:28)
[2018-06-27] MEDS ORDERED: NOVOLOG FLEXPEN (INSULIN ASPART) 100 UNITS/ML SQ ONE (21:28)
[2018-06-27] MEDS: LEVEMIR FLEXTOUCH 100 UNIT/ML INSULIN PEN SQ SCH ×2 (21:44→22:18)
[2018-06-27] MEDS: ATORVASTATIN 20 MG TABLET PO SCH (22:18)
[2018-06-28] MEDS: ACETAMINOPHEN 500 MG TABLET PO PRN ×2 (03:49→22:53)
[2018-06-28] MEDS: GUAIFENESIN/D-METH. 10 ML UDC PO PRN ×4 (03:55→22:41)
[2018-06-28] MEDS: AMPICILLIN SODIUM/SULBACTAM NA 3 G in 0.9 % SODIUM CHLORIDE 100ML 100 ML IVPB SCH ×3 (05:31→22:44)
[2018-06-28] MEDS: IPRATROPIUM/ALBUTEROL (0.5MG/3MG) NEB INH SCH ×5 (06:16→21:42)
[2018-06-28] MEDS ORDERED: PREDNISONE 20 MG TAB PO SCH (08:00)
[2018-06-28] MEDS: METOPROLOL SUCC 50 MG TABLET PO SCH ×2 (08:04→09:32)
[2018-06-28] MEDS: AMLODIPINE BESYLATE 5MG TAB PO SCH ×2 (08:06→09:31)
[2018-06-28] MEDS: LOSARTAN POTASSIUM 25 MG TABLET PO SCH ×2 (08:07→09:31)
[2018-06-28] MEDS: NOVOLOG FLEXPEN (INSULIN ASPART) 100 UNITS/ML SQ SCH ×6 (08:09→17:37)
[2018-06-28] MEDS ORDERED: ANORO (UMECLIDINIUM & VILANTEROL) 62.5MCG/25MCG INH ONE (08:54)
[2018-06-28] MEDS: BUDESONIDE 0.5 MG/2 ML INH SCH ×2 (09:00→18:01)
[2018-06-28] MEDS: ANORO (UMECLIDINIUM & VILANTEROL) 62.5MCG/25MCG INH IH SCH (09:21)
[2018-06-28] MEDS: CLOPIDOGREL 75MG TABLET PO SCH (09:29)
[2018-06-28] MEDS: ISOSORBIDE MONONITRATE 60 MG TAB.ER.24H PO SCH (09:29)
[2018-06-28] MEDS: ASPIRIN 81 MG TABEC PO SCH (09:29)
[2018-06-28] MEDS: RANOLAZINE 500 MG PO SCH ×2 (09:32→22:42)
[2018-06-28 11:25] LABS: URINE APPEARANCE CLEAR; URINE BILIRUBIN NEGATIVE (NEGATIVE); URINE BLOOD NEGATIVE (NEGATIVE); URINE COLOR YELLOW; URINE KETONE NEGATIVE (NEGATIVE); URINE LEUKOCYTE ESTERASE NEGATIVE (NEGATIVE); URINE NITRITE NEGATIVE (NEGATIVE); URINE UROBILINOGEN 0.2 E.U./dL (0.20 - 1.00)
[2018-06-28 11:34] LABS: URINE RBC NONE SEEN (NONE SEEN); URINE SQUAMOUS EPITHELIAL CELL 0 - 2 /hpf; URINE WBC 0 - 2 (0-2/hpf)
--- NOTE | 2018-06-28 17:02 | RADIOLOGY REPORT ---
EXAM: CHEST 2 VIEWS HISTORY: PRODUCTIVE COUGH FOR ONE WEEK. SHORTNESS OF BREATH. TECHNIQUE: Upright AP and lateral views of the chest. COMPARISON: Two-view chest radiographic examination dated 12/15/2016. FINDINGS: The frontal view is again obtained with the patient in a lordotic position. The heart again projects borderline to mildly enlarged. No pulmonary venous hypertension is seen. The aortic knob is atherosclerotic. The lungs and pleural spaces remain clear. There are degenerative changes scattered throughout the thoracic spine associated with accentuation of the normal thoracic kyphosis. IMPRESSION: 1. NO EVIDENCE OF ACUTE CARDIOPULMONARY DISEASE WITHOUT CHANGE SINCE 2016. BORDERLINE TO MILD CARDIOMEGALY REDEMONSTRATED. 2. NOT MENTIONED ABOVE IS APPARENT MILD NARROWING OF THE IMMEDIATE SUBGLOTTIC AIRWAY SYMMETRICALLY. THIS IS OF QUESTIONABLE SIGNIFICANCE. JOB NUMBER: [id number] [facility]
[2018-06-28] MEDS: ENOXAPARIN 30 MG/0.3 ML SYR SQ SCH (18:37)
[2018-06-28] MEDS: ATORVASTATIN 20 MG TABLET PO SCH (22:41)
[2018-06-28] MEDS: LEVEMIR FLEXTOUCH 100 UNIT/ML INSULIN PEN SQ SCH (22:44)
[2018-06-29] MEDS: AMPICILLIN SODIUM/SULBACTAM NA 3 G in 0.9 % SODIUM CHLORIDE 100ML 100 ML IVPB SCH (06:23)
[2018-06-29] MEDS ORDERED: PHENOL SORE THROAT SPRAY 177 ML BTL MT PRN (07:28)
[2018-06-29] MEDS: IPRATROPIUM/ALBUTEROL (0.5MG/3MG) NEB INH SCH ×2 (07:28→10:16)
[2018-06-29] MEDS: BUDESONIDE 0.5 MG/2 ML INH SCH ×2 (07:28→18:12)
[2018-06-29] MEDS: NOVOLOG FLEXPEN (INSULIN ASPART) 100 UNITS/ML SQ SCH ×6 (07:33→17:43)
[2018-06-29] MEDS: ISOSORBIDE MONONITRATE 60 MG TAB.ER.24H PO SCH (09:28)
[2018-06-29] MEDS: METOPROLOL SUCC 50 MG TABLET PO SCH (09:29)
[2018-06-29] MEDS: ASPIRIN 81 MG TABEC PO SCH (09:29)
[2018-06-29] MEDS: LOSARTAN POTASSIUM 25 MG TABLET PO SCH (09:29)
[2018-06-29] MEDS: CLOPIDOGREL 75MG TABLET PO SCH (09:29)
[2018-06-29] MEDS: AMLODIPINE BESYLATE 5MG TAB PO SCH (09:29)
[2018-06-29] MEDS: RANOLAZINE 500 MG PO SCH ×2 (09:30→21:36)
--- NOTE | 2018-06-29 09:50 | History and Physical Report ---
Addendum INPATIENT CERTIFICATION: Admit to inpatient care based on my medical assessment after consideration of the patient risk factors, age, comorbidities, and the patient's presenting symptoms, and acuity. I expect that this patient will remain in the hospital for greater than or equal to 2 midnights and that the services needed warrant inpatient care because of hypoxia, wheezing, difficulty breathing, IV antibiotics, IV Solu-Medrol, and diabetes mellitus under control. ESTIMATED LENGTH OF STAY: Three days. The patient may reasonably expect to be discharged or transferred to a hospital within 96 hours after admission to [facility]. I certify that my determination is in accordance with my understanding of Medicare requirements for reasonable and necessary inpatient services. LOWELL
--- NOTE | 2018-06-29 09:50 | History and Physical Report ---
DATE OF ADMISSION: 06/26/2018 at 3 p.m. Surgeon: Pietro Chavarria DO CHIEF COMPLAINT: Dyspnea. HISTORY OF PRESENT ILLNESS: This 77-year-old female presented to the emergency department short of breath. This has been going on for 7 days. She went to the Urgent Care on Friday, got a Z-Marc, cough syrup, and inhaler, and not getting any better. She finished the Z-Marc today. She saw Dr. Alejo in the office today who sent her to the emergency department for admission. She was seen in the emergency department by Dr. Carty and admitted to the hospital after 2 breathing treatments, IV sliding Medrol 60 mg and 3 grams of Unasyn. PAST MEDICAL HISTORY: Asthma, uterine cancer, coronary artery disease with 2 stents through [facility] in [place], chronic low back pain, getting shots in her back. Next shot is in July. COPD. Hypertension. Diabetes mellitus type 2, osteoarthritis of her back, anxiety and depression. PAST SURGICAL HISTORY: Cataract surgery, bilateral hernia repair, hysterectomy, 2 stents. MEDICATIONS ON ADMISSION: 1. Losartan 25 mg a day. 2. Ranexa SR 500 mg b.i.d. 3. Plavix 75 mg a day. 4. Amlodipine 2.5 mg a day. 5. Isosorbide mono 60 mg 1 and 1/2 tablets a day. 6. Metoprolol succinate 50 mg 1 and 1/2 tablets per day. 7. Vitamin B once a day. 8. Aspirin 81 mg once a day. 9. Atorvastatin 80 mg at bedtime. 10. Levemir insulin at night, 72 units at night. 11. NovoLog before meals. She takes 24 units per each meal and when her sugars are above 160, she takes 1 unit extra for every 10 over 160. ALLERGIES: No known drug allergies. REVIEW OF SYSTEMS: CONSTITUTIONAL: She denies chills or fever, but coughing and wheezing. EYES: She denies any eye discharge or visual problems. HEENT: She has congestion, coughing, denies a sore throat, but did have a sore throat when this started. RESPIRATORY: She is wheezing. Denies hemoptysis. She is short of breath. CARDIOVASCULAR: Dyspnea on exertion. Denies chest pain, palpitations, or arrhythmias. She has coronary artery disease. ENDOCRINE: She has the diabetes mellitus, but denies fatigue, weight loss, weight gain, or hypothyroidism. GASTROINTESTINAL: No nausea, vomiting, diarrhea, black stools, or bloody stools. GENITOURINARY: No dysuria, hematuria, or frequency or burning on urination. MUSCULOSKELETAL: She has arthritis of her back and gets chronic shots for her back pain. SKIN: She denies any skin lesions or infection. PHYSICAL EXAMINATION: GENERAL: Height is 5 feet 1 inch, weight is 218 pounds. VITAL SIGNS: Temperature 97.7, pulse is 88, blood pressure is 124/91, respiratory rate is 20, pulse OX is 97% on room air. She is audibly wheezing. HEENT: Pupils are equal, round, and reactive to light and accomodation. Extraocular muscles intact. Throat is clear. Tympanic membranes are coates. NECK: Supple. No jugular venous distention, no hepatojugular reflux. Carotid pulses are equal bilaterally. CARDIOVASCULAR: Regular rate and rhythm without murmurs, clicks, rubs, or gallops. RESPIRATORY: Wheezing in all lung de la vega. ABDOMEN: Soft, nontender, no hepatosplenomegaly, no guarding or rigidity. EXTREMITIES: No pitting edema, no cyanosis, no clubbing. Full range of motion, peripheral pulses are good. SKIN: No skin abnormalities noted. GYNECOLOGIC: Deferred. BREASTS: Deferred. RECTAL: Deferred. MENTAL STATUS: Alert and oriented x 3. Not very good historian about her medical conditions. IMPRESSION: 1. Acute bronchitis. 2. Exacerbation of asthma and COPD. 3. History of coronary artery disease. 4. History of uterine cancer. 5. Diabetes mellitus type 2. 6. Hypertension. 7. Hypercholesterolemia. PLAN: IV Solu-Medrol, Unasyn IV, and breathing treatments. Lovenox 30 mg subq because her renal status is slightly down. Cover her sugars with insulin to scale. MTDD
[2018-06-29] MEDS: ANORO (UMECLIDINIUM & VILANTEROL) 62.5MCG/25MCG INH IH SCH (10:16)
--- NOTE | 2018-06-29 12:46 | Discharge Note ---
VTE H&P Assessment - Risk for VTE Risk for VTE: Yes Risk Level: Moderate Risk Assessment Date: 06/26/18 Risk Assessment Time: 16:00 VTE Orders Placed or Will Be Placed: Yes Discharge Medications - Discharge Medications Home Medications: Ambulatory Orders Atorvastatin Calcium 80 mg PO QHS 12/14/16 [Last Taken 06/26/18] Ranolazine [Ranexa] 500 mg PO BID 12/14/16 [Last Taken 06/26/18] Amlodipine Besylate 2.5 mg PO DAILY 06/26/18 [Last Taken 06/26/18] Aspirin [Aspir-Low] 81 mg PO DAILY 06/26/18 [Last Taken 06/26/18] Clopidogrel Bisulfate [Clopidogrel] 75 mg PO DAILY 06/26/18 [Last Taken 06/26/18 ] Insulin Aspart [Novolog] 24 unit SQ TIDAC 06/26/18 [Last Taken Unknown] Insulin Detemir [Levemir] 72 unit SQ QHS 06/26/18 [Last Taken Unknown] Isosorbide Mononitrate [Imdur] 90 mg PO DAILY 06/26/18 [Last Taken 06/26/18] Losartan Potassium 25 mg PO DAILY 06/26/18 [Last Taken Unknown] Metoprolol Succinate 75 mg PO DAILY 06/26/18 [Last Taken Unknown] Vitamin B Complex 1 each PO DAILY 06/26/18 [Last Taken 06/26/18] Acetaminophen [Tylenol 500Mg Tab] 500 mg PO Q6H PRN tablet 06/29/18 [Last Taken Unknown] Discharge Note - Date Date of Discharge Note: 06/29/18 Forms: Patient Portal Access
--- NOTE | 2018-06-29 13:10 | RADIOLOGY REPORT ---
EXAM: CHEST, TWO VIEWS HISTORY: COUGH, SORE THROAT. TECHNIQUE: Two views of the chest were obtained. Comparison: Chest radiograph 06/26/18 and 12/15/16. FINDINGS: The cardiac silhouette is within normal size limits. Asymmetric elevation of the right hemidiaphragm. Thoracic aortic calcifications. Relatively prominent central bronchial vascular lung markings, may be accentuated by low inspiratory lung volumes. No focal pulmonary consolidation. No pleural effusion or pneumothorax. IMPRESSION: NO FOCAL PULMONARY CONSOLIDATION. JOB NUMBER: [id number] [facility]
--- NOTE | 2018-06-29 13:22 | CT SCAN REPORT ---
EXAM: CT OF THE NECK SOFT TISSUES WITH CONTRAST HISTORY: COUGH, SORE THROAT, QUESTIONABLE SUBGLOTTIC NARROWING SEEN ON RECENT CHEST RADIOGRAPH. TECHNIQUE: CT of the neck soft tissues was obtained with 100 ml Omnipaque 300 intravenous contrast. Comparison: Chest radiographs on 06/29/18 and 06/26/18. FINDINGS: Slight symmetrically tapered appearance of the subglottic trachea, as noted on recent chest radiograph. At this level, tracheal diameter is maintained in the AP dimension, and is otherwise unremarkable. Symmetric appearance of the parotid and submandibular glands. Minimal heterogeneity of the thyroid gland without a discrete nodule. No cervical lymphadenopathy. No abnormal soft tissue fluid collection or enhancing mass. Flow is seen in the carotid arteries bilaterally, not optimally assessed on this non-CTA examination. Mild cervical spine degenerative changes. The visualized lungs are clear. Mild mucosal thickening of the ethmoid air cells bilaterally. Mild bilateral maxillary sinus mucosal thickening. Mucosal thickening involving both sphenoid sinuses. IMPRESSION: 1. NO ACUTE ABNORMALITIES OF THE NECK SOFT TISSUES. 2. SLIGHTLY TAPERED APPEARANCE OF THE SUBGLOTTIC TRACHEA, NOTED ON 06/26/18 CHEST RADIOGRAPH COMPARISON. OF NOTE, THIS APPEARANCE WAS LESS APPARENT ON EARLIER SAME DAY CHEST RADIOGRAPH. FINDINGS OF UNCERTAIN CLINICAL SIGNIFICANCE , MAY AT LEAST BE IN PART RELATED TO PHYSIOLOGIC RESPIRATORY CHANGES. 3. MILD CHRONIC APPEARING SINUS DISEASE INVOLVING THE BILATERAL MAXILLARY SINUSES, SPHENOID SINUSES AND ETHMOID AIR CELLS. J[facility]BER: [id number] [facility]
[2018-06-29] MEDS: ALBUTEROL HFA 8 GM INHALER INH SCH ×3 (13:35→22:23)
[2018-06-29] MEDS: NYSTATIN 100,000 UNITS/ML 5ML CUP PO SCH ×3 (14:02→21:41)
[2018-06-29] MEDS: AMOX TR/POT CLAV. 500MG/125MG TABLET PO SCH ×2 (15:41→21:35)
[2018-06-29] MEDS: GUAIFENESIN/D-METH. 10 ML UDC PO PRN ×2 (15:55→21:34)
[2018-06-29] MEDS: ENOXAPARIN 30 MG/0.3 ML SYR SQ SCH (17:52)
[2018-06-29] MEDS: ATORVASTATIN 20 MG TABLET PO SCH (21:35)
[2018-06-29] MEDS ORDERED: LEVEMIR FLEXTOUCH 100 UNIT/ML INSULIN PEN SQ SCH (22:00)
--- NOTE | 2018-06-30 08:09 | Discharge Note ---
VTE H&P Assessment - Risk for VTE Risk for VTE: Yes Risk Level: Moderate Risk Assessment Date: 06/26/18 Risk Assessment Time: 16:00 VTE Orders Placed or Will Be Placed: Yes Discharge Medications - Discharge Medications Prescriptions: Albuterol Sulfate [Ventolin Hfa] 2 puff INH RESP.Q4H.WA #1 inhaler Amoxicillin/Potassium Clav [Augmentin 500Mg/125Mg] 1 each PO TID #21 tab Fluticasone/Umeclidin/Vilanter [Trelegy Ellipta 100-62.5-25] 1 each IH DAILY #1 blst.w.dev Nystatin 10 ml PO QID #400 ml Home Medications: Ambulatory Orders Atorvastatin Calcium 80 mg PO QHS 12/14/16 [Last Taken 06/26/18] Ranolazine [Ranexa] 500 mg PO BID 12/14/16 [Last Taken 06/26/18] Amlodipine Besylate 2.5 mg PO DAILY 06/26/18 [Last Taken 06/26/18] Aspirin [Aspir-Low] 81 mg PO DAILY 06/26/18 [Last Taken 06/26/18] Clopidogrel Bisulfate [Clopidogrel] 75 mg PO DAILY 06/26/18 [Last Taken 06/26/18 ] Insulin Aspart [Novolog] 24 unit SQ TIDAC 06/26/18 [Last Taken Unknown] Insulin Detemir [Levemir] 72 unit SQ QHS 06/26/18 [Last Taken Unknown] Isosorbide Mononitrate [Imdur] 90 mg PO DAILY 06/26/18 [Last Taken 06/26/18] Losartan Potassium 25 mg PO DAILY 06/26/18 [Last Taken Unknown] Metoprolol Succinate 75 mg PO DAILY 06/26/18 [Last Taken Unknown] Vitamin B Complex 1 each PO DAILY 06/26/18 [Last Taken 06/26/18] Acetaminophen [Tylenol 500Mg Tab] 500 mg PO Q6H PRN tablet 06/29/18 [Last Taken Unknown] Albuterol Sulfate [Ventolin Hfa] 2 puff INH RESP.Q4H.WA #1 inhaler 06/30/18 [ Last Taken Unknown] Amoxicillin/Potassium Clav [Augmentin 500Mg/125Mg] 1 each PO TID #21 tab [Last Taken Unknown] Fluticasone/Umeclidin/Vilanter [Trelegy Ellipta 100-62.5-25] 1 each IH DAILY #1 blst.w.dev 06/30/18 [Last Taken Unknown] Insulin Detemir [Levemir Flextouch] 72 unit SQ QHS syringe 06/30/18 [Last Taken Unknown] Nystatin 10 ml PO QID #400 ml 06/30/18 [Last Taken Unknown] Discharge Note - Date Date of Discharge Note: 06/30/18 Disposition: Home, Self-Care Condition: (1) Good Additional Instructions: follow up with Dr. Ramirez in 3-7 days stay away from second hand smoke check glucose before meals and bedtime Referrals: MYAH PERSUAD [Primary Care Provider] - Forms: Patient Portal Access
[2018-06-30] MEDS: ALBUTEROL HFA 8 GM INHALER INH SCH ×4 (08:12→18:32)
[2018-06-30] MEDS: NOVOLOG FLEXPEN (INSULIN ASPART) 100 UNITS/ML SQ SCH ×4 (08:22→12:52)
[2018-06-30] MEDS: METOPROLOL SUCC 50 MG TABLET PO SCH (09:13)
[2018-06-30] MEDS: CLOPIDOGREL 75MG TABLET PO SCH (09:14)
[2018-06-30] MEDS: AMOX TR/POT CLAV. 500MG/125MG TABLET PO SCH ×2 (09:14→15:19)
[2018-06-30] MEDS: ISOSORBIDE MONONITRATE 60 MG TAB.ER.24H PO SCH (09:15)
[2018-06-30] MEDS: LOSARTAN POTASSIUM 25 MG TABLET PO SCH (09:15)
[2018-06-30] MEDS: AMLODIPINE BESYLATE 5MG TAB PO SCH (09:15)
[2018-06-30] MEDS: ASPIRIN 81 MG TABEC PO SCH (09:16)
[2018-06-30] MEDS: NYSTATIN 100,000 UNITS/ML 5ML CUP PO SCH ×2 (09:16→15:19)
[2018-06-30] MEDS: RANOLAZINE 500 MG PO SCH (09:19)
[2018-06-30] MEDS: ANORO (UMECLIDINIUM & VILANTEROL) 62.5MCG/25MCG INH IH SCH (09:22)
[2018-06-30] MEDS: BUDESONIDE 0.5 MG/2 ML INH SCH ×2 (09:22→18:32)
--- NOTE | 2018-06-30 12:30 | Discharge Summary ---
DATE: 06/30/2018 at 8:15 a.m. DISCHARGE DIAGNOSES: 1. Acute bronchitis. 2. Acute exacerbation of chronic obstructive pulmonary disease. 3. Diabetes mellitus type 2. 4. Thrush of the throat. 5. Status post coronary artery disease, stable. 6. Status post hypertension. 7. Status post hypercholesterolemia. 8. Status post history of uterine cancer. 9. Narrowing on the chest x-ray, not significant as seen by CT scanning of the soft tissue neck. 10. Chronic low back pain. ATTENDING PHYSICIAN: Pietro Chavarria DO REASON FOR HOSPITALIZATION: Dyspnea. This 77-year-old female presented to the emergency department short of breath. It has been going on 7 days. She was seen at urgent care and got Z-Marc, cough syrup, and an inhaler. Not getting any better. She finished the Z-Marc on the day she came into the ER. She saw Dr. Hogue in the office and he sent her to the emergency department for admission. She was seen in the emergency department by Dr. Carty and admitted to the hospital for breathing treatments, IV Solu-Medrol, and IV Unasyn. SIGNIFICANT FINDINGS: The initial chest x-ray in the emergency department showed no evidence of acute cardiopulmonary disease without changes since 12/15/2016, [id number] cardiomegaly. Not mentioned, there is a slightly narrowed subglottic airway of questionable significance. Because of that subglottic narrowing seen on the chest x-ray, a CT of the neck soft tissue was done which revealed no acute abnormalities of the neck soft tissue. There is a slight tapering appearance of the subglottic trachea as noted on the 06/26/2018 chest x-ray. However, it is less apparent today than on that chest x-ray. Findings of uncertain clinical significance. May at least be in part related to physiological respiratory changes. There is mild chronic appearing sinus disease involving the bilateral maxillary sinuses, sphenoid sinus, and ethmoid air cells. Her repeat chest x-ray on 06/29/2018 showing no focal pulmonary consolidation. EKG is sinus rhythm. No acute changes seen. WBC 5900, hemoglobin 11.1. Sodium 134, potassium 3.9, chloride 93, BUN 20, creatinine 0.8, sugar on the morning of discharge is 132. She had 2 troponin Ts which were negative. Liver enzymes, ALT is slightly elevated at 42. Brain natriuretic peptide is 521. Influenza A and B were negative. Urine showing glucose, spilling glucose, no signs of an infection, no leukocytes, 0-2 WBCs, no epithelial cells, no red cells seen, no bacteria. She has protein and glucose in the urine but her sugar was out of control when she came into the hospital. THERAPY PROVIDED: She was given IV Unasyn 3 g q.6 h. She was also placed on IV Solu-Medrol which seemed to help but it caused her sugar to go very high. She was switched over to inhaled Pulmicort, and she settled down. Then we switched her over to Enoro Ellipta with the inhaled Pulmicort and albuterol inhaler p.r.n. Because of requiring possibly up to 3 or 4 inhalers, we decided to give her a prescription of Trelegy Ellipta, which is a new inhaler that has 3 medications in it; a steroid, a long-acting beta-camron, and an anticholinergic agent, 1 puff a day and using an albuterol rescue inhaler 2 puffs q.4 h. p.r.n. to keep her management of inhalers simplified. CONDITION ON DISCHARGE: Improving but still scant wheezing. DISCHARGE INSTRUCTIONS: Follow up with Dr. Hogue in 3-7 days. DISCHARGE MEDICATION: 1. Augmentin 500 mg t.i.d. for 7 days. 2. Albuterol inhaler 2 puffs q.4 h. It is a rescue inhaler but at this point I would like her to use it regularly. 3. Trelegy Ellipta 1 puff a day. 4. Levemir 72 units at night. 5. NovoLog 24 units before meals and our scale also to add on. 6. Chloraseptic spray for sore throat. 7. Nystatin suspension 10 mL 4 times a day for 10 days. She has thrush infection. 8. Toprol-XL 75 mg a day. 9. Plavix 75 mg a day. 10. Norvasc 2.5 mg a day. 11. Imdur 90 mg a day. 12. Cozaar 25 mg a day. 13. Robitussin DM 10 mL q.4 h. p.r.n. 14. Ranexa 500 mg b.i.d. 15. Lipitor 80 mg daily. 16. Tylenol p.r.n. MTDD
== END 2018-06-30 17:30 | disposition home or self-care (01) | DRG 191 ==
LOC: ER 11:56 → MEDSURG 14:33
PROVIDERS: ADMIT Emergency Medicine; ATTEND Emergency Medicine
DX: J44.1 Chronic obstructive pulmonary disease with (acute) exacerbation (principal); B37.0 Candidal stomatitis; J20.9 Acute bronchitis, unspecified; J45.998 Other asthma; R06.00 Dyspnea, unspecified; I25.10 Atherosclerotic heart disease of native coronary artery without angina pectoris; I10 Essential (primary) hypertension; E11.9 Type 2 diabetes mellitus without complications; Z85.42 Personal history of malignant neoplasm of other parts of uterus; Z95.5 Presence of coronary angioplasty implant and graft
CPT/HCPCS: 36416; 70491; 71046; 80053; 81001; 82947; 82948; 83880; 84484; 85025; 85027; 87400; 90670; 93005; 93010; 94640; 96365; 96374; 99223; 99233; 99239; 99285; J0295; J1650; J2930; J7512; J7613